=== PATIENT | male | born 1985 | race Caucasian/White ===

== ENCOUNTER 2024-04-23 10:54 | Emergency (ER) | payer MEDICAID, OTHER ==
[~2024-04-23] VITALS: Ht 180.3 cm; Wt 103.0 kg
[2024-04-23 11:24] VITALS: O2SAT 100
[2024-04-23 11:29] LABS: BASOPHILS % 0.8 % (0.0-2.0); EOSINOPHILS % 0.5 % (0.0-5.0); HEMATOCRIT. 44.7 % (42.0-52.0); HEMOGLOBIN. 15.1 g/dL (14.0-18.0); LYMPHOCYTES % 8.3 % (20.0-50.0); MEAN CORPUSCULAR HEMOGLOBIN 30.2 pg (28.0-32.0); MEAN CORPUSCULAR HGB CONC 33.7 g/dL (31.0-37.0); MEAN CORPUSCULAR VOLUME 89.6 fL (80.0-94.0); MONOCYTES % 5.4 % (2.0-8.0); PLATELET 371 x1000/uL (130-400); RED CELL DISTRIBUTION WIDTH 12.6 % (11.6-14.6); WHITE BLOOD COUNT 16.2 x1000/uL (4.5-11.0)
[2024-04-23 11:34] LABS: CHLORIDE 108 mEq/L (98-107); POTASSIUM 4.2 mEq/L (3.5-5.1); SODIUM 136 mEq/L (136-145)
[2024-04-23 11:35] LABS: CARBON DIOXIDE 20 mEq/L (21-32)
[2024-04-23 11:36] LABS: CALCIUM 9.7 mg/dL (8.7-10.4)
[2024-04-23 11:40] LABS: CREATININE 1.3 mg/dL (0.6-1.3); GLUCOSE 127 mg/dL (70-105)
[2024-04-23 11:41] LABS: UREA NITROGEN BLOOD 10 mg/dL (9-23)
[2024-04-23 11:42] LABS: ALANINE AMINOTRANSFERASE 36 IU/L (10-49); ALBUMIN 4.6 g/dL (3.2-4.8); ASPARTATE AMINOTRANSFERASE 26 IU/L (<34)
[2024-04-23 11:43] LABS: BILIRUBIN DIRECT 0.3 mg/dL (<=3.0); PROTEIN TOTAL 7.9 g/dL (6.0-8.3)
[2024-04-23 12:59] LABS: CLARITY URINE CLEAR (CLEAR); COLOR URINE YELLOW (YELLOW); GLUCOSE URINE NEGATIVE (NEGATIVE); KETONES URINE NEGATIVE (NEGATIVE); LEUKOCYTE ESTERASE URINE NEGATIVE (NEGATIVE); NITRITE URINE NEGATIVE (NEGATIVE); OCCULT BLOOD URINE 1+ (NEGATIVE); PH URINE 5.5 (4.5-8.0); PROTEIN URINE NEGATIVE (NEGATIVE); SPECIFIC GRAVITY URINE 1.017 (1.005-1.030); UROBILINOGEN URINE 0.2 E.U./dL (0.2-1.0)
[2024-04-23 13:06] LABS: BACTERIA URINE 1+; SQUAMOUS EPITHELIAL CELL URINE NONE SEEN /lpf (RARE/1+); URIC ACID CRYSTALS URINE 2+ /lpf; WBC URINE NONE SEEN /hpf (0-2)
[2024-04-23] MEDS ORDERED: TAMS-11 MT (14:08)
[2024-04-23] MEDS ORDERED: NAPR-1176 MT (14:08)
[2024-04-23] MEDS: KETOROLAC 15MG/ML VIAL IM ONE (15:04)
[2024-04-23] MEDS: SODIUM CHLORIDE 0.9% 1,000 ML IV ONE (15:04)
[2024-04-23] MEDS: MORPHINE SULFATE 4 MG/ML INJ (FOR IV/IM USE) IM ONE (16:31)
[2024-04-23 17:03] VITALS: BP 131/72; PULSE 75; RESP 18; TEMP 37.00296; O2SAT 97
== END 2024-04-23 17:08 | disposition home or self-care (01) ==
LOC: ER 11:00
DX: K57.90 Diverticulosis of intestine, part unspecified, without perforation or abscess without bleeding (principal)
CPT/HCPCS: 80076; 80048; 81003; 83690; 85025; 36415; 74176; 96360; 96372; 99285; J1885; J2270; J7030; Z7610